=== PATIENT | male | born 1940 | race Caucasian/White ===

== ENCOUNTER → 2020-11-14 | Outpatient (CLI) | payer MEDICARE, OTHER ==
[~2020-11-14] MED LIST: ASPIRIN 325MG325 MG PO; ASPIRIN EC81 MG PO; CLEOCIN HCL300 MG PO; ECOTRIN81 MG PO; KEFLEX CAP 500500 MG PO; LISINOPRIL10 MG PO; PLAVIX 75 MG TA75 MG PO; TYLENOL W/CODEIN1 E1 PO
== END ==
LOC: US 10:15
DX: I10 Essential (primary) hypertension (principal); R10.11 Right upper quadrant pain; R94.31 Abnormal electrocardiogram [ECG] [EKG]
CPT/HCPCS: 36415; 76705; 93005

== ENCOUNTER → 2021-02-25 | Outpatient (CLI) | payer MEDICARE, OTHER | LOC: EXRD 09:00 | DX: Z13.6 Encounter for screening for cardiovascular disorders (principal); I73.89 Other specified peripheral vascular diseases; I70.0 Atherosclerosis of aorta | CPT/HCPCS: 76706 ==

== ENCOUNTER → 2021-03-11 | Outpatient (CLI) | payer MEDICARE, OTHER | LOC: HEART 5 03-07 07:45 | DX: I20.9 Angina pectoris, unspecified (principal) | CPT/HCPCS: 78452; A9502; J2785 ==

== ENCOUNTER → 2021-03-13 | Outpatient (CLI) | payer MEDICARE, OTHER | LOC: ECHO 03-11 13:00 | DX: R06.02 Shortness of breath (principal); I20.9 Angina pectoris, unspecified | CPT/HCPCS: ECHO; 93306 ==

== ENCOUNTER 2021-06-29 15:27 | Emergency (ER) | payer MEDICARE, OTHER ==
[2021-06-29 16:38] LABS: HEMOGLOBIN 14.8 gm/dl (14.0-17.5); RED BLOOD COUNT 5.03 M/UL (4.20-5.50); WHITE BLOOD COUNT 9.4 K/UL (4.5-11.0)
[2021-06-29 17:06] LABS: BUN/CREATININE RATIO 25 (0-10)
== END 2021-06-29 19:30 | disposition home or self-care (01) ==
LOC: ER1 15:27
PROVIDERS: Family Medicine
DX: R00.2 Palpitations (principal); I10 Essential (primary) hypertension; F17.290 Nicotine dependence, other tobacco product, uncomplicated; I73.9 Peripheral vascular disease, unspecified
CPT/HCPCS: 80053; 82550; 82553; 83874; 84484; 85025; 93005; 99285

== ENCOUNTER → 2021-10-17 | Outpatient (CLI) | payer MEDICARE, OTHER | LOC: CT 10-16 13:00 | DX: I74.5 Embolism and thrombosis of iliac artery (principal); I10 Essential (primary) hypertension; I73.9 Peripheral vascular disease, unspecified; Z91.81 History of falling; I77.819 Aortic ectasia, unspecified site | CPT/HCPCS: 36415; 75635; 82565; 84520; Q9967 ==